=== PATIENT | female | born 1980 | race Caucasian/White ===

== ENCOUNTER 2022-01-26 16:02 | Emergency (ER) | payer SELFPAY ==
[~2022-01-26] VITALS: Ht 172.7 cm; Wt 81.6 kg
[2022-01-26 16:22] VITALS: BP 125/83
--- NOTE | 2022-01-26 16:38 | NUR ---
pt restless and removing monitoring equipment
--- NOTE | 2022-01-26 16:46 | NUR ---
pt ambulated to bathroom at this time
--- NOTE | 2022-01-26 22:34 | NUR ---
Patient is sleeping
--- NOTE | 2022-01-26 22:53 | NUR ---
Removed IV line as request and provided blankets.
--- NOTE | 2022-01-27 00:13 | NUR ---
PT MOVED TO ER BED 3
--- NOTE | 2022-01-27 00:45 | NUR ---
Patient ambulated to restroom.
--- NOTE | 2022-01-27 02:54 | NUR ---
Provided food and orange juice as request.
--- NOTE | 2022-01-27 03:53 | NUR ---
Patient is sleeping.
--- NOTE | 2022-01-27 04:32 | NUR ---
Patient vomiting x one episode, Dr. Torres notified.
[2022-01-27] MEDS ORDERED: ONDANSETRON 4 MG ODT PO ONE (04:35)
--- NOTE | 2022-01-27 05:36 | NUR ---
PATIENT AMBULATED TO RESTROOM
--- NOTE | 2022-01-27 07:16 | NUR ---
RECEIVED PT IN BED ASLEEP, RESPIRATIONS EVEN AND UNLABORED
[2022-01-27 08:15] VITALS: BP 122/72
== END 2022-01-27 08:15 | disposition home or self-care (01) ==
LOC: MED 16:02
DX: T40.604A Poisoning by unspecified narcotics, undetermined, initial encounter (principal); F10.129 Alcohol abuse with intoxication, unspecified; Z20.822 Contact with and (suspected) exposure to COVID-19; Y90.9 Presence of alcohol in blood, level not specified; Y92.89 Other specified places as the place of occurrence of the external cause
CPT/HCPCS: 87426; 99283; Q0162

== ENCOUNTER 2022-01-27 16:32 | Emergency (ER) | payer SELFPAY ==
[~2022-01-27] VITALS: Ht 172.7 cm; Wt 81.6 kg
[2022-01-27 16:43] VITALS: BP 135/83
[2022-01-27 18:01] VITALS: BP 137/80
--- NOTE | 2022-01-27 18:01 | NUR ---
Patient discharged with v/s stable. Written and verbal after care instructions given and explained. Patient verbalized understanding. Ambulatory with steady gait. All questions addressed prior to discharge. Advised to follow up with PMD.
== END 2022-01-27 18:01 | disposition home or self-care (01) ==
LOC: MED 16:32
DX: F41.9 Anxiety disorder, unspecified (principal); R06.02 Shortness of breath; F17.200 Nicotine dependence, unspecified, uncomplicated; F15.90 Other stimulant use, unspecified, uncomplicated
CPT/HCPCS: 99281